=== PATIENT | male | born 1995 | race Caucasian/White ===

== ENCOUNTER 2019-05-22 19:52 | Inpatient (IN) | payer OTHER ==
[2019-05-22 20:40] VITALS: BMI 20.5
--- NOTE | 2019-05-22 21:00 | HP ---
CIWA Score Nausea/Vomitin-No Nausea/No Vomiting Muscle Tremors: None Anxiety: 2 Agitation: 4-Moderately Restless Paroxysmal Sweats: No Perspiration Orientation: 0-Oriented Tacttile Disturbances: 0-None Auditory Disturbances: 0-None Visual Disturbances: 2-Mild Sensitivity Headache: 2-Mild CIWA-Ar Total Score: 10 - Admission Criteria OASAS Guidelines: Admission for Medically Managed Detox: Requires at least one of the followin. CIWA greater than 12 2. Seizures within the past 24 hours 3. Delirium tremens within the past 24 hours 4. Hallucinations within the past 24 hours 5. Acute intervention needed for co occurring medical disorder 6. Acute intervention needed for co occurring psychiatric disorder 7. Severe withdrawal that cannot be handled at a lower level of care (continued vomiting, continued diarrhea, abnormal vital signs) requiring intravenous medication and/or fluids 8. Admission ROS S - HPI Allergies/Adverse Reactions: Allergies Allergy/AdvReac Type Severity Reaction Status Date / Time No Known Allergies Allergy Verified 05/22/19 20:23 History of Present Illness: 24 y.o. male here requesting detox from etoh use , reports 12 beers/day , reports blackouts , denies seizures , denies tremors , latest use today , starts drinking in the mornings . cannabis - since age 13 , 1/4 /day cocaine since 18's occasionally crack cocaine - recent use PCP - tried crystal metamphatime - tried once psiloscybine - tried once denies other illicits tobacco : 1 ppd PMHX : eczema PSHX :denies PSych : depression, bipolar d/o Exam Limitations: Clinical Condition - Ebola screening Have you traveled outside of the country in the last 21 days: No (N) Have you had contact with anyone from an Ebola affected area: No Do you have a fever: No - Review of Systems Constitutional: No Symptoms Reported EENT: reports: No Symptoms Reported Respiratory: reports: No Symptoms reported Cardiac: reports: No Symptoms Reported GI: reports: No Symptoms Reported : reports: No Symptoms Reported Musculoskeletal: reports: No Symptoms Reported Integumentary: reports: See HPI, Other (chronic eczema on knees) Neuro: reports: Headache Endocrine: reports: No Symptoms Reported Hematology: reports: No Symptoms Reported Psychiatric: reports: Orientated x3, Agitated, Anxious Patient History - Smoking Cessation Smoking history: Current every day smoker Have you smoked in the past 12 months: Yes Hx Chewing Tobacco Use: No Initiated information on smoking cessation: No - Substances abused Alcohol Substance route: Oral Frequency: Daily Amount used: 12 beers Age of first use: 13 Date of last use: 05/22/19 Crack Substance route: Smoking Frequency: 1-2 times per week Amount used: not sure Age of first use: 24 Date of last use: 05/21/19 Marijuana/Hashish Substance route: Smoking Frequency: Daily Amount used: 8th/ blunt Age of first use: 13 Date of last use: 05/21/19 Admission Physical Exam BHS - Vital Signs Vital Signs: Vital Signs - 24 hr 05/22/19 20:20 Temperature 98.3 F Pulse Rate 71 Respiratory 20 Rate Blood Pressure 112/66 - Physical General Appearance: Yes: Anxious HEENTM: Yes: EOMI, Hearing grossly Normal, Normocephalic, Normal Voice Respiratory: Yes: Chest Non-Tender, Lungs Clear, Normal Breath Sounds, No Respiratory Distress, No Accessory Muscle Use Neck: Yes: No masses,lesions,Nodules, Trachea in good position Cardiology: Yes: Regular Rhythm, Regular Rate, S1, S2 Abdominal: Yes: Non Tender, Soft Musculoskeletal: Yes: Gait Steady Extremities: Yes: Normal Range of Motion, Non-Tender Neurological: Yes: Fully Oriented, Alert, Motor Strength 5/5 Integumentary: Yes: Warm - Diagnostic (1) Alcohol use disorder Current Visit: Yes Status: Chronic (2) Cannabis dependence Current Visit: Yes Status: Chronic (3) Nicotine dependence Current Visit: Yes Status: Chronic Qualifiers: Nicotine product type: cigarettes (4) Crack cocaine use Current Visit: Yes Status: Acute Breathalyzer - Breathalyzer Breathalyzer: 0 Urine Drug Screen - Test Device Lot number: [id number] Expiration date: 11/28/20 - Control Is test valid?: Yes - Results Drug screen NEGATIVE: No Urine drug screen results: THC-Marijuana, BETTY-Cocaine Inpatient Rehab Admission - Rehab Decision to Admit Inpatient rehab admission?: No
[2019-05-22] MEDS ORDERED: MAGNESIUM CITRATE 300 ML BOTTLE PO PRN (21:07)
[2019-05-22] MEDS ORDERED: ACETAMINOPHEN 325 MG TABLET (FP) PO PRN ×2 (21:07)
[2019-05-22] MEDS ORDERED: MELATONIN 5 MG TABLETS PO PRN (21:07)
[2019-05-22] MEDS ORDERED: hydrOXYzine PAMOATE 25 MG CAPSULE (FP) PO PRN (21:07)
[2019-05-22] MEDS ORDERED: IBUPROFEN 400 MG TABLET (FP) PO PRN (21:07)
[2019-05-22] MEDS ORDERED: MAGNESIUM HYDROX 2400MG/30ML ORAL SUSPENSION 30 ML CUP PO PRN (21:07)
[2019-05-22] MEDS ORDERED: BISMUTH SUBSALICYLATE 524 MG/30 ML UD PO PRN (21:07)
[2019-05-22] MEDS ORDERED: MAG HYDROX/AL HYDROX/SIMETH 30 ML UNIT-DOSE CUP PO PRN (21:07)
[2019-05-22] MEDS ORDERED: MENTHOL/PHENOL 1 EACH UD MM PRN (21:07)
[2019-05-22] MEDS: THIAMINE HCL 100 MG TABLET (FP) PO SCH (22:11)
[2019-05-22] MEDS: diazePAM 5 MG TABLET PO SCH (22:11)
[2019-05-23] MEDS: diazePAM 5 MG TABLET PO SCH ×3 (05:58→22:01)
[2019-05-23] MEDS: NICOTINE POLACRILEX 2 MG GUM BUC PRN ×6 (05:59→22:04)
--- NOTE | 2019-05-23 09:44 | CONSULT ---
[facility] Psychiatric Consult - Data Date of interview: 05/23/19 Admission source: [facility] Identifying data: Mr Noe is a 24 years old single [place] male, unemployed receiving food stamp, homeless seeking detox treatment alcohol, cocaine and cannabid Substance Abuse History: Reports history of alcohol, crack cocaine and marijuana use. Refer to addiction counselor's summary for further information Medical History: Significant for eczema. Smokes cigarettes 1 ppd Psychiatric History: Reports that his first psychiatric contact was at age 16 due to depresion in the context of homelessnes. He said that he was diagnosed with Adjustment Disorder. His second psychiatric contact occured in 2017 when he was admitted to [facility] for depression and spice-induced psychotic symptoms. Claims that he was started on medications but did not follow up after discharge. Reports a second psychiatric admission to [facility]. He said that he was diagnosed with Bipolar Disorder and prescribed Haldol, Ativan and another medication. Once more he did not follow up after discharge. Told senior copywriter that since, he has been off medication till his admission to [facility] emergency room prior to being referred to this facility. At that ED, he was started on Gabapentin 300 mg/bid. Denies previous suicidal attempt. At present, denies experiencing psychotic, manic or depressivr symptoms, S/H ideations. However, reports sleeping poorly Physical/Sexual Abuse/Trauma History: Denies history of abuse as a child or DV relationship as an adult Mental Status Exam - Mental Status Exam Alert and Oriented to: Time, Place, Person Cognitive Function: Fair Patient Appearance: Disheveled Mood: Hopeful, Euthymic Patient Behavior: Cooperative Speech Pattern: Clear Voice Loudness: Normal Thought Process: Intact, Goal Oriented Thought Disorder: Not Present Hallucinations: Denies Suicidal Ideation: Denies Homicidal Ideation: Denies Insight/Judgement: Poor Sleep: Poorly Appetite: Fair Muscle strength/Tone: Normal Gait/Station: Normal Psychiatric Findings - Problem List (Novi 1, 2,3) (1) Mood disorder Current Visit: Yes Status: Chronic (2) Bipolar disorder Current Visit: Yes Status: Ruled-out (3) Substance-induced sleep disorder Current Visit: Yes Status: Acute (4) Alcohol dependence, uncomplicated Current Visit: Yes Status: Acute (5) Cannabis dependence Current Visit: Yes Status: Acute (6) Cocaine abuse Current Visit: Yes Status: Acute (7) Nicotine dependence Current Visit: Yes Status: Chronic Qualifiers: Nicotine product type: cigarettes (8) Eczema Current Visit: Yes Status: Chronic - Initial Treatment Plan Initial Treatment Plan: 1) Continue Gabapentin 300 mg po BID. 2) Start Vistaril 25 mg po Q 6hrs prn for anxiety and insomnia. 3) Continue inpatient detoxification
[2019-05-23] MEDS: PRENATAL VITAMINS W/ FOLIC ACID TABLET (FP) PO SCH (09:56)
[2019-05-23] MEDS: GABAPENTIN 300 MG CAPSULE PO SCH ×2 (09:59→22:02)
[2019-05-23 10:24] LABS: HEMATOCRIT 41.3 % (35.4-49); HEMOGLOBIN 14.1 GM/dL (11.7-16.9); MCH 33.5 pg (25.7-33.7); MCHC 34.2 g/dl (32.0-35.9); MEAN CELL VOLUME 98.2 fl (80-96); MEAN PLT VOLUME 7.7 fl (7.5-11.1); RBC 4.21 M/mm3 (4.00-5.60); RDW 12.9 % (11.9-15.9); WHITE BLOOD COUNT 6.2 K/mm3 (4.0-10.0)
[2019-05-23 10:34] LABS: ALBUMIN 3.5 g/dl (3.4-5.0); BILIRUBIN,TOTAL 0.4 mg/dL (0.2-1); CALCIUM 8.6 mg/dL (8.5-10.1); CREATININE 1.1 mg/dL (0.55-1.3); POTASSIUM 3.8 mmol/L (3.5-5.1); TOT PROT 6.3 g/dl (6.4-8.2)
--- NOTE | 2019-05-23 11:55 | PN ---
S CIWA - CIWA Score Nausea/Vomitin-No Nausea/No Vomiting Muscle Tremors: 3 Anxiety: 2 Agitation: 2 Paroxysmal Sweats: 2 Orientation: 0-Oriented Tacttile Disturbances: 0-None Auditory Disturbances: 0-None Visual Disturbances: 0-None Headache: 0-None Present CIWA-Ar Total Score: 9 BHS Progress Note (SOAP) Subjective: sweats mild shakes i want nicotine 4mg gum Objective: 05/23/19 11:54 Vital Signs Temperature 97.2 F L 05/23/19 11:23 Pulse Rate 70 05/23/19 11:23 Respiratory Rate 16 05/23/19 11:23 Blood Pressure 115/71 05/23/19 11:23 O2 Sat by Pulse Oximetry (%) Laboratory Tests 05/23/19 05/23/19 05/23/19 08:00 08:00 08:00 WBC 6.2 RBC 4.21 Hgb 14.1 Hct 41.3 MCV 98.2 H MCH 33.5 MCHC 34.2 RDW 12.9 Plt Count No Result Required. MPV 7.7 Sodium 139 Potassium 3.8 Chloride 108 H Carbon Dioxide 25 Anion Gap 6 L BUN 18.0 Creatinine 1.1 Est GFR (CKD-EPI)AfAm 106.81 Est GFR (CKD-EPI)NonAf 92.16 Random Glucose 108 H Calcium 8.6 Total Bilirubin 0.4 AST 12 L ALT 24 Alkaline Phosphatase 55 Total Protein 6.3 L Albumin 3.5 HIV 1&2 Antibody Screen Negative HIV P24 Antigen Negative aaox3 ambulating no acute distress Assessment: 05/23/19 11:55 withdrawals Plan: continue detox nicotine gum 4mg ordered increase fluids
[2019-05-23] MEDS: hydrOXYzine PAMOATE 25 MG CAPSULE (FP) PO SCH ×2 (14:09→17:26)
--- NOTE | 2019-05-23 15:15 | EKG ---
Test Reason : Blood Pressure : / mmHG Vent. Rate : 062 BPM Atrial Rate : 062 BPM P-R Int : 140 ms QRS Dur : 086 ms QT Int : 386 ms P-R-T Axes : 038 071 069 degrees QTc Int : 391 ms NORMAL SINUS RHYTHM NORMAL ECG NO PREVIOUS ECGS AVAILABLE Confirmed by RAISA CASTILLO MD ([id number]) on 05/23/2019 3:14:43 PM Referred By: Confirmed By:RAISA CASTILLO MD
[2019-05-23] MEDS: THIAMINE HCL 100 MG TABLET (FP) PO SCH (22:02)
[2019-05-24] MEDS: hydrOXYzine PAMOATE 25 MG CAPSULE (FP) PO SCH ×2 (00:01→06:17)
[2019-05-24] MEDS: diazePAM 5 MG TABLET PO SCH ×2 (06:18→17:15)
[2019-05-24] MEDS: NICOTINE POLACRILEX 2 MG GUM BUC PRN ×5 (06:18→22:08)
[2019-05-24] MEDS: GABAPENTIN 300 MG CAPSULE PO SCH ×2 (10:15→22:06)
[2019-05-24] MEDS: PRENATAL VITAMINS W/ FOLIC ACID TABLET (FP) PO SCH (10:15)
[2019-05-24] MEDS: hydrOXYzine PAMOATE 50 MG CAPSULE (FP) PO SCH ×3 (12:17→23:01)
[2019-05-24] MEDS: diazePAM 5 MG TABLET PO PRN ×2 (14:15→19:02)
--- NOTE | 2019-05-24 14:27 | PN ---
S CIWA - CIWA Score Nausea/Vomitin-No Nausea/No Vomiting Muscle Tremors: 2 Anxiety: 2 Agitation: 2 Paroxysmal Sweats: No Perspiration Orientation: 0-Oriented Tacttile Disturbances: 0-None Auditory Disturbances: 0-None Visual Disturbances: 0-None Headache: 0-None Present CIWA-Ar Total Score: 6 BHS Progress Note (SOAP) Subjective: I am feeling better little anxiety Objective: 05/24/19 14:25 Vital Signs Temperature 97.7 F 05/24/19 13:56 Pulse Rate 96 H 05/24/19 13:56 Respiratory Rate 18 05/24/19 13:56 Blood Pressure 149/71 05/24/19 13:56 O2 Sat by Pulse Oximetry (%) Laboratory Tests 05/23/19 05/23/19 05/23/19 08:00 08:00 08:00 WBC 6.2 RBC 4.21 Hgb 14.1 Hct 41.3 MCV 98.2 H MCH 33.5 MCHC 34.2 RDW 12.9 Plt Count No Result Required. MPV 7.7 Sodium 139 Potassium 3.8 Chloride 108 H Carbon Dioxide 25 Anion Gap 6 L BUN 18.0 Creatinine 1.1 Est GFR (CKD-EPI)AfAm 106.81 Est GFR (CKD-EPI)NonAf 92.16 Random Glucose 108 H Calcium 8.6 Total Bilirubin 0.4 AST 12 L ALT 24 Alkaline Phosphatase 55 Total Protein 6.3 L Albumin 3.5 RPR Titer HIV 1&2 Antibody Screen Negative HIV P24 Antigen Negative 05/23/19 08:00 WBC RBC Hgb Hct MCV MCH MCHC RDW Plt Count MPV Sodium Potassium Chloride Carbon Dioxide Anion Gap BUN Creatinine Est GFR (CKD-EPI)AfAm Est GFR (CKD-EPI)NonAf Random Glucose Calcium Total Bilirubin AST ALT Alkaline Phosphatase Total Protein Albumin RPR Titer Nonreactive HIV 1&2 Antibody Screen HIV P24 Antigen aaox3 ambulating no acute distress Assessment: 05/24/19 14:26 mild withdrawal sx Plan: d/c in am at 7am for p/u to [facility]
[2019-05-24] MEDS ORDERED: NICOTINE 14 MG/24 HOURS TOPICAL PATCH TD SCH (15:00)
[2019-05-24] MEDS: THIAMINE HCL 100 MG TABLET (FP) PO SCH (22:06)
[2019-05-24 22:47] VITALS: TEMP 97.7
[2019-05-25] MEDS: hydrOXYzine PAMOATE 50 MG CAPSULE (FP) PO SCH (05:54)
[2019-05-25] MEDS ORDERED: diazePAM 5 MG TABLET PO ONE (06:00)
[2019-05-25 06:12] VITALS: BP 132/66; PULSE 73
--- NOTE | 2019-05-25 18:29 | DS ---
[facility] Detox Discharge Summary Admission Date: 05/22/19 Discharge Date: 05/25/19 - History Present History: Alcohol Dependence, Cannabis Dependence, Cocaine Dependence Additional Comments: PATIENT LEFT DETOX UNIT EARLY IN AM PRIOR TO TIME OF ARRIVAL OF TECHNOLOGY INTERN ONTO DETOX UNIT. PRE-DISCHARGE MEDICAL ASSESSMENT UNABLE TO BE DONE. PER COUNSELOR Nirali POZO, [facility]. Pertinent Past History: Eczema, Depression, Bipolar Disorder, Nicotine Dependence, History of Mood Disorder. - Physical Exam Results Vital Signs: Vital Signs Temperature 97.7 F 05/25/19 06:12 Pulse Rate 73 05/25/19 06:12 Respiratory Rate 18 05/25/19 06:12 Blood Pressure 132/66 05/25/19 06:12 O2 Sat by Pulse Oximetry (%) Pertinent Admission Physical Exam Findings: WITHDRAWAL SYMPTOMS. Laboratory Tests 05/23/19 05/23/19 05/23/19 08:00 08:00 08:00 WBC 6.2 RBC 4.21 Hgb 14.1 Hct 41.3 MCV 98.2 H MCH 33.5 MCHC 34.2 RDW 12.9 Plt Count No Result Required. MPV 7.7 Sodium 139 Potassium 3.8 Chloride 108 H Carbon Dioxide 25 Anion Gap 6 L BUN 18.0 Creatinine 1.1 Est GFR (CKD-EPI)AfAm 106.81 Est GFR (CKD-EPI)NonAf 92.16 Random Glucose 108 H Calcium 8.6 Total Bilirubin 0.4 AST 12 L ALT 24 Alkaline Phosphatase 55 Total Protein 6.3 L Albumin 3.5 RPR Titer HIV 1&2 Antibody Screen Negative HIV P24 Antigen Negative 05/23/19 08:00 WBC RBC Hgb Hct MCV MCH MCHC RDW Plt Count MPV Sodium Potassium Chloride Carbon Dioxide Anion Gap BUN Creatinine Est GFR (CKD-EPI)AfAm Est GFR (CKD-EPI)NonAf Random Glucose Calcium Total Bilirubin AST ALT Alkaline Phosphatase Total Protein Albumin RPR Titer Nonreactive HIV 1&2 Antibody Screen HIV P24 Antigen LABS NOTED. - Treatment Hospital Course: Detox Protocol Followed, Detoxed Safely, Responded well, Discharged Condition Good, Rehab Referral Accepted Patient has Accepted a Rehab Referral to: [facility]. - Medication Discharge Medications: Ambulatory Orders Gabapentin 300 mg PO BID 05/22/19 - Diagnosis (1) Alcohol dependence, uncomplicated Status: Acute (2) Cannabis dependence Status: Acute (3) Cocaine abuse Status: Acute (4) Crack cocaine use Status: Acute (5) Substance-induced sleep disorder Status: Acute (6) Alcohol use disorder Status: Chronic (7) Eczema Status: Chronic Qualifiers: Eczema type: unspecified Qualified Code(s): L30.9 - Dermatitis, unspecified (8) Mood disorder Status: Chronic (9) Nicotine dependence Status: Chronic Qualifiers: Nicotine product type: cigarettes Substance use status: uncomplicated Qualified Code(s): F17.210 - Nicotine dependence, cigarettes, uncomplicated (10) Bipolar disorder Status: Ruled-out Qualifiers: Active/Remission status: remission status unspecified Qualified Code(s): F31.9 - Bipolar disorder, unspecified - AMA Did Patient Leave Against Medical Advice: No
== END 2019-05-25 07:01 | disposition home or self-care (01) | DRG 774 ==
LOC: YASAS 19:52 → Y6N 21:15
PROVIDERS: ADMIT Allergy & Immunology; ATTEND Allergy & Immunology
PROC: HZ2ZZZZ Detoxification Services for Substance Abuse Treatment (ICD-10-PCS; principal; 2019-05-22)
DX: F10.230 Alcohol dependence with withdrawal, uncomplicated (principal); F12.20 Cannabis dependence, uncomplicated; F14.10 Cocaine abuse, uncomplicated; F17.210 Nicotine dependence, cigarettes, uncomplicated; F39 Unspecified mood [affective] disorder; F31.9 Bipolar disorder, unspecified; F19.282 Other psychoactive substance dependence with psychoactive substance-induced sleep disorder; L30.9 Dermatitis, unspecified
CPT/HCPCS: 36415; 80053; 85027; 86593; 87389; 93005; 93010